=== PATIENT | female | born 1950 | race Caucasian/White ===

== ENCOUNTER 2016-05-26 10:18 | Inpatient (IN) | payer OTHER, MEDICARE ==
[~2016-05-26] VITALS: Ht 179.1 cm; Wt 90.9 kg
[~2016-05-26 10:18] MED LIST: GABA300C3 PO; HYDR-3533 PO; LISI-587 PO; MILN25 PO; ULTR50TA PO
[2016-05-28] MEDS ORDERED: GABA300C5 PO (09:24)
[2016-05-28] MEDS ORDERED: HYDR-3533 PO (09:24)
[2016-05-28] MEDS ORDERED: ULTR50TA5 PO (09:26)
[2016-05-28] MEDS ORDERED: MILN25 PO (09:26)
[2016-05-28] MEDS ORDERED: LISI-587 PO (09:26)
[2016-05-28] MEDS: CHLORHEXIDINE GLUCONATE 4% SOLN 120 ML BTL TOPICAL SCH (09:30)
[2016-05-28] MEDS ORDERED: WELLTAB39 PO (09:39)
[2016-05-28 09:46] VITALS: BP 120/72; PULSE 82; RESP 20; TEMP 98.2; O2SAT 97
[2016-05-28] MEDS ORDERED: FENO145T2 PO (10:01)
[2016-05-28] MEDS ORDERED: INSULIN HUMAN REGULAR 1,000 UNITS/10 ML VIAL SQ PRN (10:15)
[2016-05-28] MEDS ORDERED: METOPROLOL TARTRATE 25 MG TAB PO PRN (10:15)
[2016-05-28] MEDS ORDERED: VANCOMYCIN 1000 MG/NS 250 ML (for <70 kg) IV SCH ×2 (10:15)
[2016-05-28] MEDS ORDERED: LACTATED RINGER'S 1000 ML IV PRN (10:15)
[2016-05-28] MEDS ORDERED: POVIDONE IODINE 5% (ANTISEPSIS KIT) 4 APPLICATIONS EACH NARE PRN (10:15)
[2016-05-28] MEDS ORDERED: ceFAZolin 2 GM PREMIX 50 ML IV SCH (10:15)
[2016-05-28] MEDS ORDERED: CHLORHEXIDINE GLUCONATE 2 % 1 PACK (2 CLOTHS) TOPICAL PRN (10:15)
[2016-05-28] MEDS ORDERED: SODIUM CHLORID 0.9% 500 ML IV PRN (10:15)
[2016-05-28] MEDS ORDERED: fentaNYL CITRATE 250 MCG/5 ML AMP ONE ×2 (10:48→15:53)
[2016-05-28] MEDS ORDERED: DEXAMETHASONE SOD PHOS 4 MG/ML VIAL ONE (11:49)
[2016-05-28] MEDS ORDERED: MIDAZOLAM HCL 2 MG/2 ML VIAL ONE (11:49)
[2016-05-28] MEDS ORDERED: FAMOTIDINE 20 MG/2 ML VIAL ONE (11:49)
[2016-05-28] MEDS ORDERED: PHENYLEPH/NS 1000 MCG/10 ML SYR IV ONE (12:00)
[2016-05-28] MEDS ORDERED: PROPOFOL 200 MG/20 ML AMP IV ONE (12:00)
[2016-05-28] MEDS ORDERED: LACTATED RINGER'S 1000 ML INJ 1,000 ML IV ONE (12:00)
[2016-05-28] MEDS ORDERED: ePHEDrine/NS 25 MG/5 ML SYR IV ONE (12:00)
[2016-05-28] MEDS ORDERED: PHENYLEPHRINE HCL 10 MG/ML VIAL IV ONE (12:00)
[2016-05-28] MEDS ORDERED: GENTAMICIN SULFATE 80 MG/2 ML VIAL IRRIGATION ONE (13:18)
[2016-05-28] MEDS ORDERED: BUPIVACAINE/EPINEPHRINE 0.25% PF 10 ML VIAL INFIL ONE (13:20)
--- NOTE | 2016-05-28 14:54 | PD.OP ---
cc: Rashaun Stockton MD; Wei Stockton MD Operative Report Date of Surgery: May 28, 2016 Preoperative Diagnosis: Osteophyte disc complex C3 4 and C4 5. Cervical spinal stenosis. Cervical myelopathy. Myelomalacia Postoperative Diagnosis: Same Procedure: Anterocervical discectomy decompression with bilateral foraminotomies, C3 4. Anterocervical discectomy decompression with bilateral foraminotomies, C4 5. Left anterior iliac crest bone graft Anesthesia: Gen. Surgeon: Wei Stockton Embryology Professor(s): Latha Talbot PA-C Operation and Findings: EBL: 50 cc INDICATIONS: This patient is a 66-year-old female developing significant spinal cord compression with myelomalacia. There is evidence of a disc herniation centrally into the right at C3 4 with a very hard right C4 radiculopathy. There is evidence of spinal cord signal changes at the C4 5 level associated with a high-grade stenosis. She presents for surgical treatment. NOTE: Latha Talbot PA-C was present for the entire surgical procedure as my family services assistant. In my medical opinion her skill and care was necessary for proper management of this patient PROCEDURE: The patient was brought to the operating room and anesthetized in the supine position. This patient was positioned supine on the radiolucent table. All pressure points were protected in the anterior cervical spine and iliac crest was scrubbed with alcohol followed by Hibiclens followed by ChloraPrep. A timeout was done and antibiotics were given within 1 hour time window. Lateral radiographic images were used identifying the proper level. A right anterior incision was made in line with skin creases. The platysma was opened in line with the incision. Deep dissection continued in the interval between the carotid sheath and the esophagus. The longus-coli muscles were lifted on both sides and retractors were positioned allowing good exposure. Lateral radiographic images were used to identify the proper level. Story style interosseous pins were placed at C3 and 4 allowing exposure to that level. The microscope was rolled into the field. A total discectomy was accomplished and posterior osteophytes were removed. The posterior longitudinal ligament and annulus was taken down. Bilateral foraminotomies were accomplished. The endplates were squared up anticipating later bone grafting. A blunt probe could be placed out each foramen without evidence of nerve root compromise. The C3 pin was placed down to C5. An anterior exposure was accomplished. We performed a total discectomy with excision of the posterior annulus and posterior longitudinal ligament. Bilateral foraminotomies were accomplished. Osteophytes were removed. The endplates were squared up anticipating later bone grafting. A blunt probe could be placed out each foramen without evidence of nerve root compromise. The left iliac crest was approached. A small stab incision was made allowing percutaneous access to the anterior iliac crest. Multiple cores of cancellous bone were harvested and taken to the back table to be used for later bone grafting. The wound was irrigated anesthetized and closed with 4-0 Vicryl followed by Dermabond. The case was turned over to Dr. Rashaun Stockton for fusion and instrumentation per his dictation. FINDINGS: There was evidence of a high-grade stenosis with a right-sided sequestered disc herniation to the right at the C3 4 level. There was very significant central stenosis and a fairly large osteophytic spur extending from the inferior portion of the C4 level. The final decompression was very satisfactory. No complication was appreciated. NOTE: This surgery was performed in 2 parts. The first part was the neurosurgical decompression performed under the variable power stereo microscope by the undersigned in addition to the bone graft. The second portion of the surgery will be performed by the orthopedic spine component by co -surgeon, Dr. Rashaun Stockton for the anterior fusion with interbody cage and anterior plate. The skill of 2 surgeons was necessary to perform distinct separate procedural services as dictated above and dictated in the following operative note by Dr. Rashaun Stockton. Wei Stockton MD May 28, 2016 14:54
--- NOTE | 2016-05-28 15:59 | HHI.PR ---
Immediate Post Op Note Procedure Date: May 28, 2016 Pre Op Diagnosis: C4-5 HNP,ODC,SCC,SCE C3-4 HNP,ODC CM with Cervical Rad,Reyes UE weakness Post Op Diagnosis: Same Surgeon: Rashaun Stockton MD Bezel Cutter(s): Sharon Montilla PA-C Procedure: C3-4,C4-5 AIF,ACC,ASI Complications: None Estimated blood loss: <50cc Anesthesia: General Drains: None Patient to: PACU Patient Condition: Good Implant/Devices: SEE IMPLANT LOG (if applicable) Date/Time of Procedure: SEE SURGICAL CARE RECORD Rashaun Stockton MD May 28, 2016 15:59
[2016-05-28] MEDS ORDERED: SODIUM CHLORIDE 0.9% FLUSH 5 ML FLUSH IVF PRN (16:00)
[2016-05-28] MEDS ORDERED: ACETAMINOPHEN/HYDROcodone 325 MG/5 MG TAB PO PRN (16:00)
[2016-05-28] MEDS ORDERED: ONDANSETRON HCL 4 MG/2 ML VIAL IV PRN (16:00)
[2016-05-28] MEDS ORDERED: NALOXONE HCL 0.4 MG/ML AMP IV PRN ×2 (16:00)
[2016-05-28] MEDS ORDERED: MORPHINE SULFATE 4 MG/ML INJ IV PUSH PRN (16:00)
[2016-05-28] MEDS ORDERED: Post-op Orders (for Pharmacy) MISC XX ONE (16:00)
[2016-05-28] MEDS ORDERED: ALUMINUM/MAGNESIUM/SIMETH 30 ML CUP PO PRN (16:00)
[2016-05-28] MEDS ORDERED: *morphine SULFATE 8 MG/ML PERIprocedure ONLY ONE (16:00)
[2016-05-28] MEDS: LACTATED RINGER'S 1000 ML INJ 1,000 ML IV SCH (16:14)
[2016-05-28] MEDS ORDERED: DO NOT ADM ANY ANTICOAGULANT DRUGS PRN (16:30)
[2016-05-28] MEDS ORDERED: *HYDROmorphone PF 1 MG VIAL PERIprocedural Use ONLY ONE (16:45)
--- NOTE | 2016-05-28 17:00 | RADRPT ---
EXAM DATE/TIME: 05/28/2016 15:07 [place] COMPARISON: No previous studies available for comparison. INDICATIONS : Cervical pain MEDICAL HISTORY : None. SURGICAL HISTORY : None. ENCOUNTER: Initial ACUITY: 1 day PAIN SCORE: Non-responsive. LOCATION: Cervical spine FINDINGS: 2 images were recorded digitally in the operating room using C-arm after placement of anterior cervic al plate at C3-5. CONCLUSION: Intraoperative images. Errol Holden MD on May 28, 2016 at 16:56 Board Certified Radiologist. This report was verified electronically.
--- NOTE | 2016-05-28 17:32 | PD.CONS ---
[facility] By Dr. [facility] Reason for Consult Opinion and recommendations on management of hypertension Primary Care Physician Vinod Monroy M.D. Diagnoses: History of Present Illness 66-year-old white female with a history of hypertension, depression who was had long history of neck pain and since January has had right sided upper arm weakness and numbness who has failed all conservative treatment of physical therapy and steroid injections and has electively underwent anterocervical discectomy decompression with bilateral foraminotomies of C3 and 4. She denies history of constipation. She reports that she is able to move her arms and legs at this time. She does still complain of some neck pain here at the PACU. Review of Systems Constitutional: DENIES: Fatigue, Fever, Chills, Change in appetite Endocrine: DENIES: Heat/cold intolerance Eyes: DENIES: Blurred vision, Eye pain, Vision loss Ears, nose, mouth, throat: DENIES: Hearing loss, Nasal discharge, Throat pain, Ear Pain, Sinus Pain Respiratory: DENIES: Cough, Shortness of breath Cardiovascular: DENIES: Chest pain, Palpitations, Dyspnea on Exertion, Lower Extremity Edema Gastrointestinal: DENIES: Abdominal pain, Black stools, Bloody stools, Constipation, Diarrhea, Nausea, Vomiting Genitourinary: DENIES: Dysuria Musculoskeletal: COMPLAINS OF: Joint pain, Neck pain, DENIES: Muscle aches, Stiffness Integumentary: DENIES: Rash Hematologic/lymphatic: DENIES: Bruising, Lymphadenopathy Immunologic/allergic: DENIES: Eczema Neurologic: COMPLAINS OF: Paresthesias, DENIES: Headache, Localized weakness Psychiatric: DENIES: Anxiety, Depression, Suicidal Ideation Past Family Social History Allergies: Coded Allergies: No Known Allergies (Verified , 05/28/16) Past Medical History Chronic neck pain Hypertension Depression Past Surgical History Left lateral oophorectomy Right ulna surgery Reported Medications Wellbutrin XL 300 mg by mouth daily Fenofibrate 140 mg by mouth daily Lisinopril/HCTZ 20/25 mg by mouth daily Family History Father has stroke Social History Does not smoke cigarettes does not drink alcohol Physical Exam Vital Signs Vital Signs Date Time Temp Pulse Resp B/P Pulse Ox O2 Delivery O2 Flow Rate FiO2 05/28/16 17:00 84 13 122/79 96 Nasal Cannula 2 05/28/16 16:45 83 12 122/80 93 Nasal Cannula 2 05/28/16 16:30 86 14 127/78 93 Room Air 05/28/16 16:15 84 15 126/74 95 Room Air 05/28/16 16:00 83 16 124/75 94 Room Air 05/28/16 15:44 97.5 96 16 122/74 95 Room Air 05/28/16 09:46 98.2 82 20 120/72 97 Physical Exam GENERAL: This is a well-nourished, well-developed patient, in no apparent distress. SKIN: No rashes, ecchymoses or lesions. Cool and dry. HEAD: Atraumatic. Normocephalic. No temporal or scalp tenderness. EYES: Pupils equal round and reactive. Extraocular motions intact. No scleral icterus. No injection or drainage. ENT: Nose without bleeding, purulent drainage or septal hematoma. Throat without erythema, tonsillar hypertrophy or exudate. Uvula midline. Airway patent. NECK: Trachea midline. No JVD or lymphadenopathy. Supple, nontender, no meningeal signs. CARDIOVASCULAR: Regular rate and rhythm without murmurs, gallops, or rubs. RESPIRATORY: Clear to auscultation. Breath sounds equal bilaterally. No wheezes , rales, or rhonchi. GASTROINTESTINAL: Abdomen soft, non-tender, nondistended. No hepato-splenomegaly , or palpable masses. No guarding. MUSCULOSKELETAL: Extremities without clubbing, cyanosis, or edema. No joint tenderness, effusion, or edema noted. No calf tenderness. Negative Homans sign bilaterally. NEUROLOGICAL: Awake and alert. Cranial nerves II through XII intact. Motor and sensory grossly within normal limits. Five out of 5 muscle strength in all muscle groups. Normal speech. Imaging Last Impressions Cervical Spine X-Ray 05/28/16 0000 Signed Impressions: Service Date/Time: May 15:07 - CONCLUSION: Intraoperative images. Errol Holden MD Assessment and Plan Assessment and Plan 1. Cervical stenosis with cervical myelopathystatus post anterocervical discectomy decompression with bilateral foraminotomies, C3 4. anterocervical discectomy decompression with bilateral foraminotomies, C4 5 and Left anterior iliac crest bone graft-continue postoperative care, pain control, physical therapy per Dr. Stockton. 2. hypertension - continue lisinopril/HCTZ, further recommendations some blood pressure trends 3. History of depression, chroniccontinue home Wellbutrin 4. DVT prophylaxisbilateral SCDs. Arely Main MD May 28, 2016 17:32
[2016-05-28 17:34] VITALS: BP 133/75; PULSE 89; RESP 18; TEMP 95.9; O2SAT 97
[2016-05-28] MEDS ORDERED: ENALAPRILAT 1.25 MG/ML VIAL IV PRN (17:45)
[2016-05-28 20:05] VITALS: BP 130/83; PULSE 88; RESP 18; TEMP 96; O2SAT 99
[2016-05-28] MEDS: buPROPion HCL 150 MG SUSTAINED RELEASE TAB PO SCH (21:00)
[2016-05-28] MEDS ORDERED: ZOLPIDEM TARTRATE 5 MG TAB PO PRN (21:00)
[2016-05-28] MEDS: SODIUM CHLORIDE 0.9% FLUSH 5 ML FLUSH IVF SCH (21:00)
[2016-05-28] MEDS: ACETAMINOPHEN/HYDROcodone 325 MG/5 MG TAB PO PRN (21:01)
[2016-05-28 22:11] VITALS: O2SAT 98
[2016-05-29] VITALS: BP 116/75; PULSE 90; RESP 20; TEMP 97.5; O2SAT 99
[2016-05-29 04:00] VITALS: BP 113/72; PULSE 90; RESP 16; TEMP 97.2; O2SAT 97
[2016-05-29] MEDS: LACTATED RINGER'S 1000 ML INJ 1,000 ML IV SCH (04:55)
--- NOTE | 2016-05-29 06:54 | PD.ORT.PN ---
Subjective Subjective Remarks pt states she has post op soreness from her surgery, arms are improved Objective Vitals Vital Signs Date Time Temp Pulse Resp B/P Pulse Ox O2 Delivery O2 Flow Rate FiO2 05/29/16 04:00 97.2 90 16 113/72 97 05/29/16 00:00 97.5 90 20 116/75 99 05/28/16 22:11 98 Nasal Cannula 2.00 05/28/16 20:05 96.0 88 18 130/83 99 05/28/16 18:44 Nasal Cannula 2.00 05/28/16 17:34 95.9 89 18 133/75 97 05/28/16 17:15 97.8 80 14 122/82 99 Nasal Cannula 2 05/28/16 17:00 84 13 122/79 96 Nasal Cannula 2 05/28/16 16:45 83 12 122/80 93 Nasal Cannula 2 05/28/16 16:30 86 14 127/78 93 Room Air 05/28/16 16:15 84 15 126/74 95 Room Air 05/28/16 16:00 83 16 124/75 94 Room Air 05/28/16 15:44 97.5 96 16 122/74 95 Room Air 05/28/16 09:46 98.2 82 20 120/72 97 I/O 05/28/16 05/28/16 05/28/16 05/29/16 05/29/16 05/29/16 07:00 15:00 23:00 07:00 15:00 23:00 Intake Total 1876 ml 480 ml Output Total 50 ml Balance 1826 ml 480 ml Intake Oral 480 ml 480 ml IV Total 396 ml Other 1000 ml Output Estimated Blood Loss 50 ml # Voids 2 Objective Remarks [place] collar in place dressing dry and intact Motor is +5/5 to UE Assessment & Plan Assessment and Plan POD # 1 s/p C3-5 ACDF [place] collar x 4 weeks patient counseled on no smoking and no NSAIDs [place] rx in chart follow up in two weeks as scheduled in office discharge today, orthopedically stable Sharon Montilla May 29, 2016 06:54
[2016-05-29 08:00] VITALS: BP 124/72; PULSE 86; RESP 18; TEMP 98.9; O2SAT 96
[2016-05-29] MEDS: buPROPion HCL 150 MG SUSTAINED RELEASE TAB PO SCH (08:58)
[2016-05-29] MEDS ORDERED: MULTIVITAMINS/MINERALS THERAPEUTIC TAB PO SCH (09:00)
[2016-05-29] MEDS: SODIUM CHLORIDE 0.9% FLUSH 5 ML FLUSH IVF SCH (09:00)
[2016-05-29] MEDS ORDERED: HYDROCHLOROTHIAZIDE 25 MG TAB PO SCH (09:00)
[2016-05-29] MEDS ORDERED: FENOFIBRATE 145 MG TAB PO SCH (09:00)
[2016-05-29] MEDS ORDERED: LISINOPRIL 20 MG TAB PO SCH (09:00)
[2016-05-29] MEDS: CHLORHEXIDINE GLUCONATE 4% SOLN 120 ML BTL TOPICAL SCH (09:04)
[2016-05-29 09:48] VITALS: O2SAT 97
--- NOTE | 2016-05-29 10:50 | HHI.PR ---
Subjective Remarks Pain control. No other problems. Going to rehabilitation today. Objective Vitals Vital Signs Date Time Temp Pulse Resp B/P Pulse Ox O2 Delivery O2 Flow Rate FiO2 05/29/16 09:48 97 21 05/29/16 08:00 98.9 86 18 124/72 96 05/29/16 08:00 96 Room Air 05/29/16 04:00 97.2 90 16 113/72 97 05/29/16 00:00 97.5 90 20 116/75 99 05/28/16 22:11 98 Nasal Cannula 2.00 05/28/16 20:05 96.0 88 18 130/83 99 05/28/16 18:44 Nasal Cannula 2.00 05/28/16 17:34 95.9 89 18 133/75 97 05/28/16 17:15 97.8 80 14 122/82 99 Nasal Cannula 2 05/28/16 17:00 84 13 122/79 96 Nasal Cannula 2 05/28/16 16:45 83 12 122/80 93 Nasal Cannula 2 05/28/16 16:30 86 14 127/78 93 Room Air 05/28/16 16:15 84 15 126/74 95 Room Air 05/28/16 16:00 83 16 124/75 94 Room Air 05/28/16 15:44 97.5 96 16 122/74 95 Room Air I/O 05/28/16 05/28/16 05/28/16 05/29/16 05/29/16 05/29/16 07:00 15:00 23:00 07:00 15:00 23:00 Intake Total 1876 ml 1091 ml Output Total 50 ml Balance 1826 ml 1091 ml Intake Oral 480 ml 480 ml IV Total 396 ml 611 ml Other 1000 ml Output Estimated Blood Loss 50 ml # Voids 2 Objective Remarks GENERAL: This is a well-nourished, well-developed patient, in no apparent distress. NECK: C-collar in place. CARDIOVASCULAR: Regular rate and rhythm RESPIRATORY: Clear to auscultation. Breath sounds equal bilaterally. No wheezes , rales, or rhonchi. GASTROINTESTINAL: Abdomen soft, non-tender, nondistended. Normal active bowel sounds MUSCULOSKELETAL: Extremities without clubbing, cyanosis, or edema. NEURO: Alert & Oriented x4 to person, place, time, situation. Moves all ext x4 , patient gripping a water bottle and drinking A/P Assessment and Plan 1. Cervical stenosis with cervical myelopathystatus post anterocervical discectomy decompression with bilateral foraminotomies, C3 4, C 4 5. -continue postoperative care, pain control, physical therapy per Dr. Stockton. 2. Hypertension - continue lisinopril/HCTZ, overall blood pressure control. 3. History of depression, chroniccontinue home Wellbutrin 4. DVT prophylaxisbilateral SCDs. Discharge Planning Discharge to rehabilitation today per orthopedic surgery. Arely Main MD May 29, 2016 10:50
[2016-05-29] MEDS: ACETAMINOPHEN/HYDROcodone 325 MG/5 MG TAB PO PRN (11:45)
[2016-05-29 12:00] VITALS: BP 124/81; PULSE 79; RESP 19; TEMP 98.8; O2SAT 99
--- NOTE | 2016-05-31 20:09 | MP ---
cc: KRISTEN STOCKTON M.D.,DR. ROBLES DATE OF SURGERY May 28, 2016 PREOPERATIVE DIAGNOSES 1. C4-5 herniated nucleus pulposus, osteophyte disk complex, spinal cord compression, spinal cord edema, spinal stenosis; C3-4 right-sided herniated nucleus pulposus, moderately severe right-sided foraminal stenosis, osteophyte disk complex, left-sided spinal stenosis. 2. Cervical myelopathy, cervical radiculitis, bilateral upper extremity weakness. POSTOPERATIVE DIAGNOSES 1. C4-5 herniated nucleus pulposus, osteophyte disk complex, spinal cord compression, spinal cord edema, spinal stenosis; C3-4 right-sided herniated nucleus pulposus, moderately severe right-sided foraminal stenosis, osteophyte disk complex, left-sided spinal stenosis. 2. Cervical myelopathy, cervical radiculitis, bilateral upper extremity weakness. PROCEDURE C3-4, C4-5 anterior interbody fusion; C3-4, C4-5 Spinet ACC anterior cervical cages; C3-C5 Spinet Rauscher anterior spinal instrumentation. SURGEON Sami Stockton MD ASSESSMENT SAMY Ibrahim SPECIMENS None. ESTIMATED BLOOD LOSS 50 mL. COMPLICATIONS None. ANESTHESIA General. DRAINS None. CONDITION Stable. PLAN OF ACTIVITY As per orders. PROCEDURE Dr. Wei Stockton and myself were co-surgeons on this surgical procedure. Dr. Wei Stockton performed the C3-4, C4-5 anterior cervical diskectomy, anterior decompression using operative microscope and left anterior iliac crest bone grafting. He performed the neuro decompressive portion of procedure. I performed the orthopedic spinal stabilization and fusion portion of the procedure. My assistant refinery operator SAMY Ibrahim was present for my portion of the case. She was medically necessary for this portion of the case because of the complexity of the case and to facilitate the performance of the procedure. The REGULATORY PRODUCT MANAGER at back table did not have the skill set for this case to manipulate the instruments e.g. the multiple different soft tissue retractors and trial implants and permanent implants. The endplates at C4-5 were prepared for fusion. The hyaline cartilage endplate were used with angled curettes and burs. A 710 x 12 ACC cage placed in the interspace. Anterior iliac crest bone grafting was used under fluoroscopic guidance for interbody fusion. The endplates at C3-4 were prepared for fusion. Hyaline cartilage endplate was used with angled curettes and burs. A 510 x 12 ACC cage placed in the interspace. Anterior iliac crest bone grafting was placed under fluoroscopic guidance for interbody fusion. Large osteophytes were removed using multiple different types of rongeurs and a bur. A 40 mm Spinet Rauscher plate was used for anterior spinal instrumentation. It was contoured to the appropriate dimensions for appropriate cervical lordosis. Two tacking type of pins were used under fluoroscopic guidance for positioning of the plate in both the AP and lateral position. With the patient's a scoliosis this was positioned in the most optimal area of the cervical spine. This was confirmed under fluoroscopic guidance. Two screws were used in the vertebral body at C3, C4 and C5. Each of these screws were drilled. The screws were 14 mm in length, 4.0 mm in diameter fixed angle screws. Each screw head was appropriately locked to the plate. The fixating tacking pins were then removed. Intraoperative fluoroscopy in the AP and lateral plane confirmed satisfactory bone graft at C3-4, C4-5 and satisfactory position of the ACC cages at C3-4, C4-5 and satisfactory position of the anterior spinal instrumentation C3-C5. The wound was irrigated with copious amounts of sterile saline antibiotic solution. The wound itself was dry. The wound was closed in multiple layers using 3-0 Vicryl suture. The skin was covered with Dermabond skin glue. Sterile dressings were applied. The patient placed in a [place] cervical orthosis. The patient tolerated the procedure well and arrived recovery room in stable and satisfactory condition. MD CIRA Dillard/KK /3:39 PM /7:41 PM
[2016-08-14] MEDS ORDERED: KETO0.02 EACH EYE (11:18)
[2016-08-21] MEDS ORDERED: CIPR0.3S2 EACH EYE (10:09)
[2016-08-21] MEDS ORDERED: PRED1SUS6 EACH EYE (10:09)
== END 2016-05-29 15:18 | disposition home or self-care (01) | DRG 473 ==
LOC: HSDI 05-28 09:02 → N06A 05-28 17:43
PROVIDERS: ADMIT Orthopaedic Surgery Orthopaedic Surgery of the Spine; ATTEND Orthopaedic Surgery Orthopaedic Surgery of the Spine
PROC: 0RG2070 Fusion of 2 or more Cervical Vertebral Joints with Autologous Tissue Substitute, Anterior Approach, Anterior Column, Open Approach (ICD-10-PCS; 2016-05-28)
PROC: 0QB30ZZ Excision of Left Pelvic Bone, Open Approach (ICD-10-PCS; 2016-05-28)
PROC: 0RT30ZZ Resection of Cervical Vertebral Disc, Open Approach (ICD-10-PCS; 2016-05-28)
PROC: 0RG20A0 Fusion of 2 or more Cervical Vertebral Joints with Interbody Fusion Device, Anterior Approach, Anterior Column, Open Approach (ICD-10-PCS; principal; 2016-05-28 11:55)
DX: M50.01 Cervical disc disorder with myelopathy, high cervical region (principal); I10 Essential (primary) hypertension; M48.02 Spinal stenosis, cervical region; F32.9 Major depressive disorder, single episode, unspecified; M54.12 Radiculopathy, cervical region; M06.9 Rheumatoid arthritis, unspecified; M79.7 Fibromyalgia; M25.78 Osteophyte, vertebrae; Z87.891 Personal history of nicotine dependence
CPT/HCPCS: 72040; 76000; 94150; C1713; J0690; J1100; J1170; J1580; J2250; J2270; J2370; J2405; J3010; J3370; J7050; J7120; L0150